=== PATIENT | male | born 1960 | race Caucasian/White ===

== ENCOUNTER 2022-04-04 10:54 | Emergency (ER) | payer OTHER ==
[2022-04-04] MEDS ORDERED: lidocaine 1% 20 ML MDV SUBQ ONE (11:28)
[2022-04-04] MEDS ORDERED: BUPIVACAINE 0.5% PF 10 ML VIAL SUBQ STA (11:28)
[2022-04-04] MEDS ORDERED: BUPIVACAINE 0.5% PF 30 ML VIAL ONE (12:04)
--- NOTE | 2022-04-04 12:09 | XRAY Report ---
PROCEDURE: Finger(s) LT INDICATIONS: ring finger laceration TECHNIQUE: AP hand, 2 views of the fourth finger(s) acquired. COMPARISON: None FINDINGS: Bones: Comminuted and slightly displaced fracture involving radial aspect of fourth distal phalangeal tuft is seen. No other fracture or dislocation. No suspicious bony lesions. Soft tissues: Laceration involving tip of fourth distal phalanx is noted. No radiopaque foreign body is seen. IMPRESSION: Laceration involving tip of fourth finger with comminuted and slightly displaced fracture involving r adial aspect of fourth distal phalangeal tuft. No radiopaque foreign bodies. No other fracture or dis location. Reviewed by: Sebas Garay MD on 04/04/2022 12:07 PM PDT Approved by: Sebas Garay MD on 04/04/2022 12:07 PM PDT Station ID: [id number]
--- NOTE | 2022-04-04 12:36 | ED Physician Documentation ---
PD HPI UPPER EXT INJURY - Stated complaint Stated Complaint: L RING FINGER LAC - Chief complaint Chief Complaint: Laceration - History obtained from History obtained from: Patient - History of Present Illness Location: Left, Finger (ring) Type of injury: Laceration Where injury occurred: Home Timing - onset: Today Timing - duration: Minutes Timing - details: Abrupt onset, Still present Improved by: Rest, Immobilization Worsened by: Moving, Palpating Associated symptoms: No: Weakness, Numbness, Tingling Contributing factors: No: Anticoagulated Similar symptoms before: Diagnosis (laceration) Recently seen: Not recently seen - Additonal information Additional information: Previously well 62-year-old José Manuel Flores was at his home sawing a board with his table saw when he nicked the tip of his left ring finger. He is coming now for suturing. He is up-to-date on his tetanus. Review of Systems Constitutional: denies: Fever Respiratory: denies: Cough GI: denies: Vomiting, Diarrhea Skin: reports: Laceration (s) Musculoskeletal: reports: Extremity pain. denies: Neck pain, Back pain PD PAST MEDICAL HISTORY - Past Medical History Past Medical History: Yes Cardiovascular: Hypertension Other Past Medical History: Sleep apnea - Past Surgical History Past Surgical History: Yes Ortho: Spine surgery - Present Medications Home Medications: Ambulatory Orders Medication Instructions Recorded Confirmed cephALEXin [Keflex] 500 mg PO Q6H #20 cap 04/04/22 - Allergies Allergies/Adverse Reactions: Allergies Allergy/AdvReac Type Severity Reaction Status Date / Time Penicillins Allergy Rash Verified 04/04/22 11:03 Sulfa (Sulfonamide Allergy Rash Verified 04/04/22 11:03 Antibiotics) - Social History Does the pt smoke?: No Smoking Status: Never smoker Does the pt drink ETOH?: Yes Does the pt have substance abuse?: No - Immunizations Immunizations are current?: Yes PD ED PE NORMAL - Vitals Vital signs reviewed: Yes (Hypertensive) - General General: Alert and oriented X 3, No acute distress, Well developed/nourished - HEENT HEENT: Atraumatic, PERRL, EOMI - Respiratory Respiratory: No respiratory distress - Derm Derm: Normal color, Warm and dry, No rash - Extremities Extremities: Other (To the tip of the 4th digit on the left there is a laceration in the long axis to the radial 1/3 of the finger tip. It involves the nail. There is no FB identified. 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, No motor deficit, No sensory deficit, Normal speech Eye Opening: Spontaneous Motor: Obeys Commands Verbal: Oriented GCS Score: 15 - Psych Psych: Normal mood, Normal affect Results - Vitals Vitals: Vital Signs - 24 hr 04/04/22 04/04/22 10:59 13:39 Temperature 36.4 C L Heart Rate 61 60 Respiratory 16 16 Rate Blood Pressure 164/75 H 120/67 O2 Saturation 99 100 Oxygen O2 Source Room air - Rads (name of study) fingers Radiology: Prelim report reviewed (Impression: Laceration involving the tip of the fourth finger with comminuted and slightly displaced fracture involving the radial aspect of the fourth distal phalangeal tuft. No radiographic foreign bodies. No other fracture or dislocation.), EMP read indepedently, See rad report Procedures - Laceration (location) left ring finger Wound type: Irregular, Clean, Exposure of bone Neurovascular status: Sensory intact, Motor intact, Vascular intact Anesthesia: Lidocaine 1%, Marcaine 0.5%, Other (digital block) Wound preparation: Hibiclens, Irrigated copiously NS, Wound explored, To the base, debridement of wound edges (traumatic laceration/avulsion) (removal of 1/3 of nail radial surfact.) Skin layer closure: Nylon, Interrupted, Size #-0 - enter number (5-0) Other: Patient tolerated well, No complications, Neurovascular intact, Dressing applied, Tetanus UTD PD MEDICAL DECISION MAKING - ED course Complexity details: considered differential, d/w patient ED course: 62-year-old male with a laceration to his left ring finger from a table saw as could occur if into his finger that does get to the bone. Wound is cleaned adequately and sutured after removal of portion of the nail and the patient is point placed on antibiotic prophylaxis. Departure - Departure Disposition: 01 Home, Self Care Clinical Impression: Laceration of left ring finger Qualifiers: Encounter type: initial encounter Damage to nail status: with damage Foreign body presence: without foreign body Qualified Code(s): S61.315A - Laceration without foreign body of left ring finger with damage to nail, initial encounter Condition: Stable Instructions: ED Laceration Hand Follow-Up: ANGEL COLUNGA MD [Primary Care Provider] - Prescriptions: cephALEXin [Keflex] 500 mg PO Q6H #20 cap Comments: José Manuel, today you have cut your finger down to the bone and this will require you to be on a prophylactic antibiotic for about 5 days. This has been E scribed to the community pharmacy here in [place]. Your sutures should be removed in about 10 days. Discharge Date/Time: 04/04/22 13:45
[2022-04-04 13:39] VITALS: BP 120/67
== END 2022-04-04 13:45 | disposition home or self-care (01) ==
LOC: ED 10:54
DX: S61.315A Laceration without foreign body of left ring finger with damage to nail, initial encounter (principal); W27.0XXA Contact with workbench tool, initial encounter; Y92.009 Unspecified place in unspecified non-institutional (private) residence as the place of occurrence of the external cause
CPT/HCPCS: 13131

== ENCOUNTER 2022-04-15 12:44 | Emergency (ER) | payer OTHER ==
[2022-04-15 12:52] VITALS: BP 140/75
--- NOTE | 2022-04-15 13:25 | ED Physician Documentation ---
History of Present Illness - Stated complaint Stated Complaint: SUTURE REMOVAL - Chief complaint Chief Complaint: General - History obtained from History obtained from: Patient - History of Present Illness Timing: Today - Additonal information Additional information: 62-year-old male presents to the emergency department for suture removal from his left fourth finger. Sutures were placed approximately 12 days ago. No redness, no swelling, no fever, no pain. Review of Systems Constitutional: denies: Fever, Chills PD PAST MEDICAL HISTORY - Past Medical History Cardiovascular: Hypertension - Past Surgical History Past Surgical History: Yes Ortho: Spine surgery - Present Medications Home Medications: Ambulatory Orders Medication Instructions Recorded Confirmed Aspirin [Aspirin EC] 81 mg PO DAILY 04/15/22 04/15/22 Atorvastatin [Lipitor] 40 mg PO DAILY 04/15/22 04/15/22 Mcwilliams-3 Fatty Acids/Fish Oil 1 each PO DAILY 04/15/22 04/15/22 [Mcwilliams-3 Fish Oil 1,000 mg Sfgl] Omeprazole Magnesium 20 mg PO DAILY 04/15/22 04/15/22 Pitolisant HCl [Wakix] 35 mg PO DAILY 04/15/22 04/15/22 Propranolol ER [Inderal LA] 60 mg PO DAILY 04/15/22 04/15/22 - Allergies Allergies/Adverse Reactions: Allergies Allergy/AdvReac Type Severity Reaction Status Date / Time Penicillins Allergy Rash Verified 04/04/22 11:03 Sulfa (Sulfonamide Allergy Rash Verified 04/04/22 11:03 Antibiotics) - Social History Does the pt smoke?: No Smoking Status: Never smoker Does the pt drink ETOH?: Yes Does the pt have substance abuse?: No - Immunizations Immunizations are current?: Yes PD ED PE NORMAL - Vitals Vital signs reviewed: Yes - General General: Alert and oriented X 3, No acute distress - Derm Derm: Warm and dry - Extremities Extremities: Other (Left 4th finger sutures in place. No signs of infection.) - Neuro Neuro: Alert and oriented X 3 Results - Vitals Vitals: Vital Signs - 24 hr 04/15/22 12:51 Temperature 36.9 C Heart Rate 65 Respiratory 19 Rate Blood Pressure 140/75 H O2 Saturation 99 Oxygen O2 Source Room air PD MEDICAL DECISION MAKING - ED course Complexity details: considered differential, d/w patient ED course: All sutures removed. Tolerated well. No complications. No signs of infection. This document was made in part using voice recognition software. While efforts are made to proofread this document, sound alike and grammatical errors may occur. Departure - Departure Disposition: 01 Home, Self Care Clinical Impression: Visit for suture removal Condition: Good Instructions: ED Wound Check Sutr Remove No Infec Follow-Up: ANGEL COLUNGA MD [Primary Care Provider] - Within 1 week Comments: Follow up with your doctor as needed for further care. Return if you worsen.
== END 2022-04-15 13:33 | disposition home or self-care (01) ==
LOC: ED 12:44
DX: S61.215D Laceration without foreign body of left ring finger without damage to nail, subsequent encounter (principal); X58.XXXD Exposure to other specified factors, subsequent encounter
CPT/HCPCS: 99281; 99282

== ENCOUNTER 2024-03-11 11:31 | Emergency (ER) | payer OTHER ==
[2024-03-11 11:57] LABS: CALCIUM 9.8 mg/dL (8.5-10.3); MAGNESIUM 1.4 mg/dL (1.7-2.3)
--- NOTE | 2024-03-11 13:42 | ED Physician Documentation ---
History of Present Illness - Stated complaint Stated Complaint: HIGH POTASSIUM LEVELS - Chief complaint Chief Complaint: General - History obtained from History obtained from: Patient - Additonal information Additional information: 64-year-old gentleman had routine yearly labs done a few days ago and [facility] as his potassium was 5.8. He feels fine. PD PAST MEDICAL HISTORY - Past Medical History Cardiovascular: Hypertension - Past Surgical History Past Surgical History: Yes Ortho: Spine surgery - Present Medications Home Medications: Ambulatory Orders Medication Instructions Recorded Confirmed Aspirin [Aspirin EC] 81 mg PO DAILY 04/15/22 04/15/22 Atorvastatin [Lipitor] 40 mg PO DAILY 04/15/22 04/15/22 Allamuchy-3 Fatty Acids/Fish Oil 1 each PO DAILY 04/15/22 04/15/22 [Allamuchy-3 Fish Oil 1,000 mg Sfgl] Omeprazole Magnesium 20 mg PO DAILY 04/15/22 04/15/22 Pitolisant HCl [Wakix] 35 mg PO DAILY 04/15/22 04/15/22 Propranolol ER [Inderal LA] 60 mg PO DAILY 04/15/22 04/15/22 - Allergies Allergies/Adverse Reactions: Allergies Allergy/AdvReac Type Severity Reaction Status Date / Time Penicillins Allergy Rash Verified 03/11/24 11:47 Sulfa (Sulfonamide Allergy Rash Verified 03/11/24 11:47 Antibiotics) - Social History Does the pt smoke?: No Smoking Status: Never smoker Does the pt drink ETOH?: Yes Does the pt have substance abuse?: No - Immunizations Immunizations are current?: Yes PD ED PE NORMAL - Vitals Vital signs reviewed: Yes - General General: Alert and oriented X 3, No acute distress - Neuro Neuro: Alert and oriented X 3 Results - Vitals Vitals: Vital Signs - 24 hr 03/11/24 11:47 Temperature 36.5 C Heart Rate 61 Respiratory 18 Rate Blood Pressure 124/83 H O2 Saturation 99 Oxygen O2 Source Room air - Labs Labs: Laboratory Tests 03/11/24 11:42 Sodium 138 Potassium 4.0 Chloride 100 L Carbon Dioxide 35 H Anion Gap 3.0 L BUN 21 H Creatinine 1.0 Estimated GFR (MDRD) 75 L Glucose 152 H Calcium 9.8 Magnesium 1.4 L PD Medical Decision Making - ED course ED course: His potassium today is 4.0 so presume pseudohyperkalemia. We discussed slightly low magnesium level and consideration for an [id number] supplement. Departure - Departure Disposition: 01 Home, Self Care Clinical Impression: Hypomagnesemia Condition: Good Record reviewed to determine appropriate education?: Yes Comments: Your potassium level today was 4.0 which is fine. Your magnesium level was actually a bit low and you could supplement that with an [id number] supplement if you like. Call your doctor to arrange a follow-up appointment, make the next available appointment. In the interim, return anytime if worse or if new symptoms develop.
[2024-03-11 13:53] VITALS: BP 149/87; O2SAT 100
== END 2024-03-11 13:46 | disposition home or self-care (01) ==
LOC: ED 11:31
DX: E83.42 Hypomagnesemia (principal); I10 Essential (primary) hypertension; Z79.82 Long term (current) use of aspirin; Z79.899 Other long term (current) drug therapy
CPT/HCPCS: 36415; 80048; 83735; 93005; 99283